=== PATIENT | male | born 1965 | race African-American/Black ===

== ENCOUNTER 2019-12-28 19:30 | Emergency (ER) | payer SELFPAY ==
[~2019-12-28] VITALS: Ht 175.3 cm; Wt 99.8 kg
--- NOTE | 2019-12-28 19:31 | NUR ---
NINA C/O "CONFUSED" PT WAS FOUND IN A RANDOM PERSON'S HOUSE WATCHING TV. WHEN ASKED, PT STATED IT WAS HIS OWN HOUSE. PT AAOX4, AMBULATORY WITH STEADY GAIT. DENIES PAIN. VSS. PLACED IN BED 12 ON MONITOR AND PULSE OX. VSS. NO ACUTE DISTRESS NOTED. MD AT BEDSIDE FOR EVAL. AWAITING ORDERS.
[2019-12-28] MEDS ORDERED: AZITHROMYCIN 250 MG TABLET ONE (19:52)
[2019-12-28] MEDS ORDERED: CEFTRIAXONE 1GM BAG (ER ONLY) 50 ML IV ONE (19:52)
[2019-12-28] MEDS ORDERED: GENTAMICIN OPTH SOLN 0.3% 5 ML BOTTLE ONE (19:59)
[2019-12-28] MEDS ORDERED: GENTAMICIN OPTH SOLN 0.3% 5 ML BOTTLE OP ONE (20:00)
[2019-12-28] MEDS ORDERED: CEFTRIAXONE 1GM BAG (ER ONLY) 1 GM/50 ML PIGGYBACK IV ONE (20:00)
[2019-12-28] MEDS ORDERED: AZITHROMYCIN 250 MG TABLET PO ONE (20:00)
[2019-12-28] MEDS ORDERED: IV NS 0.9% 500 ML BAG IV ONE (20:00)
[2019-12-28] MEDS ORDERED: MOXIFLOXACIN OPTH 3 ML BOTTLE EACHEYE ONE (20:00)
[2019-12-28 20:10] LABS: BASOPHILS % (AUTO) 0.5 % (0.0-2.0); HEMATOCRIT 39 % (39-51); HEMOGLOBIN 13.1 g/dL (13.5-17.5); LYMPHOCYTES # (AUTO) 1.7 /CMM (0.8-4.8); LYMPHOCYTES % (AUTO) 31.7 % (20.0-44.0); MEAN CORPUSCULAR HGB CONC 33 g/dl (31.0-36.0); MEAN CORPUSCULAR VOLUME 88 fL (80-96); MONOCYTES # (AUTO) 0.3 /CMM (0.1-1.30); NEUTROPHILS # (AUTO) 3.1 /CMM (1.8-8.9); NEUTROPHILS % (AUTO) 57.8 % (43.0-81.0); PLATELET COUNT (AUTO) 199 /CMM (150-450); RED BLOOD CELL COUNT(AUTO) 4.48 MIL/uL (4.5-6.0); WHITE BLOOD COUNT (AUTO) 5.4 K/uL (4.3-11.0)
--- NOTE | 2019-12-28 20:12 | NUR ---
Patient is resting comfortably in bed. Easily aroused. VSS.
--- NOTE | 2019-12-28 20:43 | NUR ---
Pt was dispensed with the remainder of the eyedrop medication, Gentamycin Opthalmic Solution 0.3% as per MD ordered. Pt was given pt teaching and instruction on how and why he is using the medication. pt returned demonstration by verbalizing the instruction back.
[2019-12-28 21:14] LABS: ALANINE AMINOTRANSFERASE 21 U/L (12-78); ALBUMIN 3.4 g/dL (3.4-5.0); ALKALINE PHOSPHATASE 84 U/L (46-116); ASPARTATE AMINOTRANSFERASE 16 U/L (15-37); BILIRUBIN,DIRECT 0.1 mg/dL (0.0-0.2); BILIRUBIN,TOTAL 0.4 mg/dL (0.2-1.0); CARBON DIOXIDE 25 mmol/L (21-32); CHLORIDE 103 mmol/L (98-107); GLUCOSE 133 mg/dL (74-106); LIPASE 132 U/L (73-393); POTASSIUM 3.8 mmol/L (3.5-5.1); SODIUM SERUM 137 mmol/L (136-145); TOTAL PROTEIN, SERUM 7.1 g/dL (6.4-8.2); UREA NITROGEN, BLOOD 14 mg/dL (7-18)
--- NOTE | 2019-12-28 22:00 | NUR ---
Patient discharged to home in stable condition. Written and verbal after care instructions given. Patient verbalizes understanding of instruction. Pt ambulated with steady gait. vss.
--- NOTE | 2019-12-28 22:00 | NUR ---
IV removed. Catheter intact and site benign. Pressure and 4x4 applied to site. No bleeding noted.
[2019-12-28 22:01] VITALS: BP 128/75
== END 2019-12-28 22:01 | disposition home or self-care (01) ==
LOC: ER 19:35
DX: H10.89 Other conjunctivitis (principal)
CPT/HCPCS: 36415; 71045; 80048; 80076; 80320; 83690; 84484; 85025; 85730; 96365; 99284; J0696; J7040; G0480